=== PATIENT | male | born 1940 | race Caucasian/White ===

== ENCOUNTER 2018-02-17 12:37 | Day surgery (SDC) | payer MEDICARE, OTHER, MEDICAID ==
[2018-02-17] MEDS ORDERED: PROPOFOL 20 ML (13:02)
[2018-02-17] MEDS ORDERED: LIDOCAINE 100 MG SYRINGE (13:02)
== END 2018-02-17 15:35 | disposition home or self-care (01) ==
LOC: GIL 12:37
DX: Z12.11 Encounter for screening for malignant neoplasm of colon (principal); K57.90 Diverticulosis of intestine, part unspecified, without perforation or abscess without bleeding; I10 Essential (primary) hypertension; J44.9 Chronic obstructive pulmonary disease, unspecified
CPT/HCPCS: G0121